=== PATIENT | female | born 2005 | race Two or more races ===

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

== ENCOUNTER → 2024-08-03 | Outpatient (CLI) | payer MEDICAID ==
[2024-08-03 07:52] LABS: Urine Bacteria None Seen /hpf (None Seen)
[2024-08-03 08:24] LABS: Basophils # (auto) 0 10 ^3/uL (0-0.2); Basophils % (auto) 0.2 % (0.0-2.0); Eosinophils # (auto) 0.3 10 ^3/uL (0-0.8); Hematocrit 44.6 % (36.0-46.0); Hemoglobin 14.6 g/dL (12.2-16.2); Lymphocytes % (auto) 34.8 % (10.0-50.0); Mean Corpuscular Hemoglobin 29.1 pg (28.0-32.0); Mean Corpuscular Hgb Conc. 32.8 g/dL (32.0-36.0); Mean Corpuscular Volume 88.9 fL (80.0-100.0); Monocytes # (auto) 0.6 10 ^3/uL (0-1.3); Monocytes % (auto) 6.6 % (0.0-12.0); Neutrophils # (auto) 4.8 10 ^3/uL (1.6-8.6); Neutrophils % (auto) 55.4 % (37.0-80.0); Nucleated Red Blood Cells % 0.1 %; Platelet Count (auto) 249 10^3/uL (140-450); Red Blood Cells 5.01 10^6/uL (4.0-5.20); Red Cell Distribution Width 14.2 % (11.8-14.3); White Blood Cell 8.7 10^3/uL (4.4-10.8)
[2024-08-03 08:39] LABS: Alanine Aminotransferase 26 U/L (7-40); Alkaline Phosphatase 94 U/L (46-116); Anion Gap 10 (5-15); Aspartate Aminotransferase 18 U/L (13-40); BUN/Creatinine Ratio 13.6 (10.0-20.0); Bilirubin, Total 0.4 mg/dL (0.2-1.0); Calcium 10.3 mg/dL (8.7-10.4); Carbon Dioxide 26 mmol/L (20-31); Chloride 103 mmol/L (98-107); Cholesterol 171 mg/dL (< 200); Glucose 97 mg/dL (74-106); HDL Cholesterol 48 mg/dL (40-59); Sodium 139 mmol/L (136-145); Triglycerides 116 mg/dL (< 150)
[2024-08-03 08:43] LABS: Albumin 5.2 g/dL (3.2-4.8); Blood Urea Nitrogen 9 mg/dL (9-23); LDL Cholesterol 116 mg/dL (< 100)
[2024-08-03 09:05] LABS: Urine Blood Negative /uL (Negative); Urine Clarity Clear (Clear); Urine Color Yellow (Yellow); Urine Mucus FEW (None Seen); Urine Protein, UAD Negative (Negative); Urine Specific Gravity 1.026 (1.001-1.035); Urine Squamous Epithelial Cell FEW /hpf (<5); Urine Urobilinogen Normal (Negative); Urine WBC 2 /HPF (0-5); Urine pH 5.5 (5.0-9.0)
[2024-08-03 11:10] LABS: Follicle Stimulating Hormone 6.88 IU/L (SEE BELOW); Leuteinizing Hormone 30.5 IU/L
[2024-08-03 11:11] LABS: Prolactin 17.15 ng/mL (2.8-29.2)
[2024-08-03 11:12] LABS: Free T4 (Free Thyroxine) 1.28 ng/dL (0.89-1.76)
== END | disposition home or self-care (01) ==
LOC: LAB 07:36
PROVIDERS: ATTEND Student in an Organized Health Care Education/Training Program
DX: N92.6 Irregular menstruation, unspecified (principal); E55.9 Vitamin D deficiency, unspecified; R73.9 Hyperglycemia, unspecified; R03.0 Elevated blood-pressure reading, without diagnosis of hypertension
CPT/HCPCS: 36415; 80053; 80061; 81001; 82043; 82306; 82670; 83001; 83002; 83036; 84146; 84403; 84439; 84443; 85025

== ENCOUNTER 2024-12-16 07:10 | Outpatient (CLI) | payer MEDICAID ==
[2024-12-16 08:18] LABS: Alanine Aminotransferase 20 U/L (7-40); Alkaline Phosphatase 86 U/L (46-116); Anion Gap 10 (5-15); BUN/Creatinine Ratio 21.0 (10.0-20.0); Blood Urea Nitrogen 13 mg/dL (9-23); Carbon Dioxide 28 mmol/L (20-31); Chloride 104 mmol/L (98-107); Cholesterol 182 mg/dL (< 200); Glucose 94 mg/dL (74-106); HDL Cholesterol 46 mg/dL (40-59); Potassium 4.1 mmol/L (3.5-5.1); Sodium 142 mmol/L (136-145); Total Protein 7.3 g/dL (5.7-8.2); Triglycerides 68 mg/dL (< 150)
[2024-12-16 08:20] LABS: Albumin 4.8 g/dL (3.2-4.8); Calcium 10.4 mg/dL (8.7-10.4)
[2024-12-16 08:22] LABS: Bilirubin, Total 0.5 mg/dL (0.2-1.0)
[2024-12-16 10:12] LABS: Hepatitis B Surface Antigen Negative (Negative)
[2024-12-16 10:30] LABS: Hepatitis C Antibody Negative (Negative)
== END 2024-12-16 17:00 | disposition home or self-care (01) ==
LOC: LAB 07:10
PROVIDERS: ATTEND Student in an Organized Health Care Education/Training Program
DX: R74.01 Elevation of levels of liver transaminase levels (principal)
CPT/HCPCS: 36415; 80053; 80061; 80074